=== PATIENT | male | born 1990 | race Hispanic/Latino ===

== ENCOUNTER 2025-06-23 11:24 | Emergency (ER) | payer OTHER ==
[2025-06-23] MEDS ORDERED: KETOROLAC 30 MG/ML INJ ONE (11:57)
[2025-06-23] MEDS ORDERED: NA CHLORIDE 0.9% 1,000 ML ONE (11:57)
[2025-06-23 11:59] LABS: Absolute Lymphocytes (CBC) 0.9 K/uL (0.7-4.9); Hematocrit 51.5 % (39.6-49.0); Hemoglobin 18.6 g/dL (13.6-17.9); MCH 33.7 pg (27.0-35.0); MCHC 36.2 g/dL (32.0-36.0); MCV 93.0 fL (80-100); MPV 8.1 fL (7.6-11.3); Nucleated RBC Absolute Count 0.0 (0-0); Nucleated Red Blood Cells % 0.1 % (0-0); RBC Red Blood Cell Count 5.54 M/uL (4.33-5.43); White Blood Count 6.60 thou/uL (4.3-10.9)
[2025-06-23 12:18] LABS: PT Prothrombin Time 10.9 SECONDS (10-13.0); Protime INR 0.96
[2025-06-23 12:27] LABS: D-Dimer < 0.215 FEUug/mL (0-0.500)
[2025-06-23 12:29] LABS: ALT/SGPT 170.0 U/L (16-61); AST/SGOT 122.0 U/L (15-37); Albumin 4.9 g/dL (3.4-5.0); Albumin/Globulin Ratio 1.2 (1.1-1.8); Alkaline Phosphatase 106.0 U/L (45-117); Anion Gap 14.5 mEq/L (5.0-15.0); BUN Blood Urea Nitrogen 8.0 mg/dL (7-18); Bilirubin Indirect, Calculated 1.0 mg/dL (0.2-0.8); Globulin 4.0 g/dL (2.3-3.5); Glucose Level 133.0 mg/dL (74-106); Magnesium 2.3 mg/dL (1.6-2.4); NT PRO-BNP 10.0 pg/mL (<125); Potassium 3.5 mEq/L (3.5-5.1); Troponin High Sensitivity 17.4 pg/mL (<58.9)
--- NOTE | 2025-06-23 12:43 | RAD REPORT ---
EXAM: Chest Single View HISTORY: 34 years Male CHEST PAIN COMPARISON: No prior exams FINDINGS: LUNGS/PLEURA: The lungs are clear. No pleural effusions or pneumothorax. No pulmonary edema. CARDIAC/MEDIASTINUM: The cardiac silhouette is within normal limits. UPPER ABDOMEN: No significant abnormality. BONES: No acute abnormality. LINES/TUBES/OTHER: N/A IMPRESSION: No evidence of acute cardiopulmonary disease.
--- NOTE | 2025-06-23 13:14 | EDPHYS ---
Physician Documentation [facility] Name: Radhames Funes Age: 34 yrs Sex: Male : 1990 Arrival Date: 06/23/2025 Time: 11:24 Bed 15 Private MD: ED Physician Mandy Mantilla HPI: 06/23 11:58 This 34 yrs old Male presents to ER via Ambulatory with complaints of Chest Pain, Arm sp3 Pain, High Blood Pressure. 12:00 34-year-old male with no medical history presents to the ED with chief complaint chest sp3 pain started at work this morning. Patient also states he has been very anxious as of late. Also decreased p.o. intake and he is having some body cramps. He does work outside. He denies any other symptoms including headache, neck pain, fever, shortness of breath, abdominal pain, nausea, vomiting, diarrhea, syncope, near syncope, bleeding, rash, known sick contacts, prolonged immobilization, prior DVT or PE, or any other signs or symptoms on ROS at this time.. Historical: - Allergies: 11:43 No Known Allergies; ap3 - Home Meds: 11:43 None [Active]; ap3 - PMHx: 11:43 None; ap3 - Immunization history:: Adult Immunizations up to date. - Infectious Disease History:: Denies. - Social history:: Smoking status: Patient reports the use of cigarette tobacco products, smokes one-half pack cigarettes per day. ROS: 12:01 Constitutional: Negative for fever, chills, and weight loss, Eyes: Negative for injury, sp3 pain, redness, and discharge, ENT: Negative for injury, pain, and discharge, Neck: Negative for injury, pain, and swelling, Respiratory: Negative for shortness of breath, cough, wheezing, and pleuritic chest pain, Back: Negative for injury and pain, MS/Extremity: Negative for injury and deformity, Skin: Negative for injury, rash, and discoloration, Neuro: Negative for headache, weakness, numbness, tingling, and seizure, Psych: Negative for depression, anxiety, suicide ideation, homicidal ideation, and hallucinations, Allergy/Immunology: Negative for hives, rash, and allergies, Endocrine: Negative for neck swelling, polydipsia, polyuria, polyphagia, and marked weight changes, Hematologic/Lymphatic: Negative for swollen nodes, abnormal bleeding, and unusual bruising, 12:01 All other systems are negative, Exam: 12:01 Constitutional: This is a well developed, well nourished patient who is awake, alert, sp3 and in no acute distress. Head/Face: Normocephalic, atraumatic. Eyes: Pupils equal round and reactive to light, extra-ocular motions intact. Lids and lashes normal. Conjunctiva and sclera are non-icteric and not injected. Cornea within normal limits. Periorbital areas with no swelling, redness, or edema. ENT: Nares patent. No nasal discharge, no septal abnormalities noted. External auditory canals are clear. Oropharynx with no redness, swelling, or masses, exudates, or evidence of obstruction, uvula midline. Mucous membranes moist. Neck: Trachea midline, no thyromegaly or masses palpated, and no cervical lymphadenopathy. Supple, full range of motion without nuchal rigidity, or vertebral point tenderness. No Meningismus. Chest/axilla: Normal chest wall appearance and motion. Nontender with no deformity. No lesions are appreciated. Cardiovascular: Regular rate and rhythm with a normal S1 and S2. No gallops, murmurs, or rubs. Normal PMI, no JVD. No pulse deficits. Respiratory: Lungs have equal breath sounds bilaterally, clear to auscultation and percussion. No rales, rhonchi or wheezes noted. No increased work of breathing, no retractions or nasal flaring. Abdomen/GI: Soft, non-tender, with normal bowel sounds. No distension or tympany. No guarding or rebound. No evidence of tenderness throughout. Back: No spinal tenderness. No costovertebral tenderness. Full range of motion. Skin: Warm, dry with normal turgor. Normal color with no rashes, no lesions, and no evidence of cellulitis. 12:01 ECG was reviewed by the Attending Physician. EKG demonstrates normal sinus rhythm at 87 bpm with normal intervals, normal QRS, normal axis and nonspecific diffuse ST/T changes with mild early J-point elevation noted and no ischemic changes. Vital Signs: 11:40 BP 160 / 119; Pulse 82; Resp 18; Temp 97.8(O); Pulse Ox 100% on R/A; Weight 70 kg; Pain ap3 6/10; 11:55 BP 156 / 104; Pulse 86; Resp 20 S; Pulse Ox 98% on R/A; kc6 12:24 BP 162 / 104; Pulse 81; Resp 18 S; Pulse Ox 100% on R/A; kc6 11:40 Pain Scale: Adult ap3 MDM: 11:38 Medical Screening Exam initiated sp3 12:02 Data reviewed: vital signs, nurses notes, lab test result(s), EKG, radiologic studies. sp3 ED course: 34-year-old male with chest pain after working outside and mild anxiety. Differential diagnosis includes dehydration, rhabdomyolysis, anxiety, electrolyte abnormality, and to a lesser degree ACS or other cardiopulmonary pathology. I am not highly suspicious of sepsis, shock, PE, TAD or any other critical process. Workup will include chest x-ray, EKG and general labs with treatment IV fluids and ketorolac IV. Disposition pending workup and patient course.. 13:12 ED course: Patient with elevated LFTs and clinically dehydrated. I counseled patient on sp3 both in Fijian. We will safely discharge him home at this time.. 06/23 11:42 Order name: Basic Metabolic Panel; Complete Time: 12:49 sp3 06/23 11:42 Order name: CBC with Diff sp3 06/23 11:42 Order name: D-Dimer; Complete Time: 12:49 sp3 06/23 11:42 Order name: LFT's; Complete Time: 12:49 sp3 06/23 11:42 Order name: Magnesium; Complete Time: 12:49 sp3 06/23 11:42 Order name: NT PRO-BNP; Complete Time: 12:49 sp3 06/23 11:42 Order name: PT-INR; Complete Time: 12:49 sp3 06/23 11:42 Order name: Troponin HS; Complete Time: 12:49 sp3 06/23 12:00 Order name: CK; Complete Time: 13:08 sp3 06/23 11:42 Order name: XRAY Chest (1 view); Complete Time: 12:49 sp3 06/23 11:42 Order name: Cardiac monitoring; Complete Time: 11:55 sp3 06/23 11:42 Order name: EKG - Nurse/Tech; Complete Time: 11:55 sp3 06/23 11:42 Order name: IV Saline Lock; Complete Time: 11:55 sp3 06/23 11:42 Order name: Labs collected and sent; Complete Time: : sp3 06/23 11:42 Order name: O2 Per Protocol; Complete Time: sp3 06/23 11:42 Order name: O2 Sat Monitoring; Complete Time: sp3 Administered Medications: 12:11 Drug: NS 0.9% IV 1000 ml IV at 1 bolus Per protocol; to be given as a bolus over 60 kc6 minutes Route: IV; Rate: 1 bolus; Site: right antecubital; 12:11 Drug: Ketorolac IVP 15 mg IVP once Route: IVP; Site: right antecubital; kc6 Disposition Summary: 06/23/25 13:14 Discharge Ordered Notes: Location: Home sp3 Condition: Stable sp3 Diagnosis - Dehydration, hyponatremia, elevated liver enzymes, heat exhaustion sp3 Followup: sp3 - With: Private Physician - When: Upon discharge from the Emergency Department - Reason: Continuance of care Discharge Instructions: - Discharge Summary Sheet sp3 - Heat Exhaustion sp3 - Alcoholic Liver Disease sp3 Forms: - Work release form bd - Medication Reconciliation Form sp3 - Antibiotic Education sp3 - Prescription Opioid Use sp3 - Patient Portal Instructions sp3 - Leadership Thank You Letter sp3 Signatures: Dispatcher [employer] Fidelina Garza RN RN ap3 Mandy Mantilla MD MD sp3 Genet Bloom RN RN kc6 Corrections: (The following items were deleted from the chart) 11:42 11:42 BASIC METABOLIC PANEL+C.LAB.BRZ ordered. EDMS EDMS 11:42 11:42 CBC+H.LAB.BRZ ordered. EDMS EDMS 11:42 11:42 D-DIMER+COAG.LAB.BRZ ordered. EDMS EDMS 11:42 11:42 HEPATIC FUNCTION+C.LAB.BRZ ordered. EDMS EDMS 11:42 11:42 MAGNESIUM+C.LAB.BRZ ordered. EDMS EDMS 11:42 11:42 PROBNP+C.LAB.BRZ ordered. EDMS EDMS 11:42 11:42 PROTIME (+INR)+COAG.LAB.BRZ ordered. EDMS EDMS 11:42 11:42 Troponin High Sensitivity+C.LAB.BRZ ordered. EDMS EDMS 11:42 11:42 Chest Single View+RAD.RAD.BRZ ordered. EDMS EDMS 12:00 12:00 CREATINE PHOSPHOKINASE+C.LAB.BRZ ordered. EDMS EDMS
--- NOTE | 2025-06-23 13:14 | ER ---
Nurse's Notes [facility] Name: Radhames Funes Age: 34 yrs Sex: Male : 1990 Arrival Date: 06/23/2025 Time: 11:24 Bed 15 Private MD: Diagnosis: Dehydration, hyponatremia, elevated liver enzymes, heat exhaustion Presentation: 06/23 11:40 Chief complaint: Patient states: ([id number])he had brief chest pain this morning at work ap3 at approx 1030 this morning, and is now reporting the chest pain as gone but he is now having pain in is left arm. patient also reports shortness of breath, nausea and that his pain is currently a 6/10 on the pain scale. Coronavirus screen: At this time, the client does not indicate any symptoms associated with coronavirus-19. Ebola Screen: No symptoms or risks identified at this time. Initial Sepsis Screen: Does the patient meet any 2 criteria? No. Patient's initial sepsis screen is negative. Does the patient have a suspected source of infection? No. Patient's initial sepsis screen is negative. Risk Assessment: Do you want to hurt yourself or someone else? Patient reports no desire to harm self or others. Onset of symptoms was June 23, 2025 at 10:30. 11:40 Method Of Arrival: Ambulatory ap3 11:40 Acuity: OLIVERIO 2 ap3 Triage Assessment: 11:44 General: Appears uncomfortable, Behavior is calm, cooperative, appropriate for age. ap3 Pain: Complains of pain in chest and left arm Pain currently is 6 out of 10 on a pain scale. 11:44 Neuro: Level of Consciousness is awake, alert, obeys commands, Oriented to person, ap3 place, time, situation, Appropriate for age Gait is steady, Speech is normal. Cardiovascular: Reports chest pain, shortness of breath, Chest pain began 1 hour prior to arrival. Respiratory: Reports shortness of breath Airway is patent Respiratory effort is even, unlabored, Respiratory pattern is regular, symmetrical. GI: Reports nausea. Historical: - Allergies: 11:43 No Known Allergies; ap3 - Home Meds: 11:43 None [Active]; ap3 - PMHx: 11:43 None; ap3 - Immunization history:: Adult Immunizations up to date. - Infectious Disease History:: Denies. - Social history:: Smoking status: Patient reports the use of cigarette tobacco products, smokes one-half pack cigarettes per day. Screenin:40 [facility] ED Fall Risk Assessment (Adult) History of falling in the last 3 months, kc6 including since admission No falls in past 3 months (0 pts) Confusion or Disorientation No (0 pts) Intoxicated or Sedated No (0 pts) Impaired Gait No (0 pts) Mobility Assist Device Used No (0 pt) Altered Elimination No (0 pt) Score/Fall Risk Level 0 - 2 = Low Risk Oriented to surroundings. 11:45 Abuse screen: Denies threats or abuse. Nutritional screening: No deficits noted. ap3 Tuberculosis screening: No symptoms or risk factors identified. Assessment: 11:40 Neuro: Level of Consciousness is awake, alert, obeys commands, Oriented to person, kc6 place, time, situation, Appropriate for age. Cardiovascular: Reports chest pain, Heart tones S1 S2 present Capillary refill < 3 seconds Rhythm is regular. Respiratory: Airway is patent Trachea midline Respiratory effort is even, unlabored, Respiratory pattern is regular, symmetrical. GI: Reports nausea, Patient currently denies abdominal pain, diarrhea, vomiting. : No signs and/or symptoms were reported regarding the genitourinary system. EENT: No signs and/or symptoms were reported regarding the EENT system. Derm: Skin is intact, is healthy with good turgor, Skin is diaphoretic, Skin is red, Skin temperature is warm. Musculoskeletal: No signs and/or symptoms reported regarding the musculoskeletal system. Circulation, motion, and sensation intact. Range of motion: intact in all extremities. 11:40 General: Appears in no apparent distress. uncomfortable, well groomed, well developed, kc6 Behavior is cooperative, appropriate for age, anxious. Pain: Complains of pain in back, chest and left arm Pain radiates to back and left arm Pain currently is 7 out of 10 on a pain scale. Quality of pain is described as sharp, Pain began 2 hours ago. Is continuous, Noted to be grimacing. 12:26 Reassessment: Patient appears in no apparent distress at this time. No changes from kc6 previously documented assessment. Patient and/or family updated on plan of care and expected duration. Pain level reassessed. Patient is alert, oriented x 3, equal unlabored respirations, skin warm/dry/pink. 13:34 Reassessment: Patient appears in no apparent distress at this time. No changes from kc6 previously documented assessment. Patient and/or family updated on plan of care and expected duration. Pain level reassessed. Patient is alert, oriented x 3, equal unlabored respirations, skin warm/dry/pink. Vital Signs: 11:40 BP 160 / 119; Pulse 82; Resp 18; Temp 97.8(O); Pulse Ox 100% on R/A; Weight 70 kg; Pain ap3 6/10; 11:55 BP 156 / 104; Pulse 86; Resp 20 S; Pulse Ox 98% on R/A; kc6 12:24 BP 162 / 104; Pulse 81; Resp 18 S; Pulse Ox 100% on R/A; kc6 11:40 Pain Scale: Adult ap3 ED Course: 11:04 Arm band placed on. kc6 11:25 Patient arrived in ED. im 11:26 Mandy Mantilla MD is Attending Physician. sp3 11:29 Genet Bloom, KENDRICK is Primary Nurse. kc6 11:43 Triage completed. ap3 11:45 Patient has correct armband on for positive identification. Bed in low position. Call ap3 light in reach. Side rails up X 1. Client placed on continuous cardiac and pulse oximetry monitoring. NIBP monitoring applied. monitoring manager on. Pulse ox on. NIBP on. 11:45 Patient maintains SpO2 saturation greater than 95% on room air. ap3 11:55 EKG completed in triage. Results shown to MD. kc6 11:55 Inserted saline lock: 20 gauge in right antecubital area, using aseptic technique. kc6 Blood collected. Flushed with 10 mL NS. 12:22 XRAY Chest (1 view) In Process Unspecified. EDMS 13:34 No provider procedures requiring assistance completed. IV discontinued, intact, kc6 bleeding controlled, No redness/swelling at site. Pressure dressing applied. Administered Medications: 12:11 Drug: NS 0.9% IV 1000 ml IV at 1 bolus Per protocol; to be given as a bolus over 60 kc6 minutes Route: IV; Rate: 1 bolus; Site: right antecubital; 12:11 Drug: Ketorolac IVP 15 mg IVP once Route: IVP; Site: right antecubital; kc6 Medication: 13:34 VIS not applicable for this client. kc6 Outcome: 13:14 Discharge ordered by . sp3 13:34 Discharged to home ambulatory, with friend, kc6 13:34 Condition: improved 13:34 Discharge instructions given to patient, Instructed on discharge instructions, follow up and referral plans. Demonstrated understanding of instructions, follow-up care, 13:34 Patient left the ED. kc6 Signatures: Dispatcher [employer] EDMS Fidelina Bryant RN RN ap3 Mandy Mantilla MD MD sp3 Genet Bloom RN RN kc6 Clementina Johnson Corrections: (The following items were deleted from the chart) 11:45 11:40 Chief complaint: Patient states: he had brief chest pain this morning at work at [employer] approx 1030 this morning, and is now reporting the chest pain as gone but he is now having pain in is left arm. patient also reports shortness of breath, nausea and that his pain is currently a 6/10 on the pain scale. [employer] 12:26 11:04 [facility] ED Fall Risk Assessment (Adult) History of falling in the last 3 months, kc6 including since admission No falls in past 3 months (0 pts) Confusion or Disorientation No (0 pts) Intoxicated or Sedated No (0 pts) Impaired Gait No (0 pts) Mobility Assist Device Used No (0 pt) Altered Elimination No (0 pt) Score/Fall Risk Level 0 - 2 = Low Risk Oriented to surroundings, 6 12:26 11:04 General: Appears in no apparent distress. uncomfortable, well groomed, well kc6 developed, Behavior is cooperative, appropriate for age, anxious, [facility] 12:26 11:04 Pain: Complains of pain in back, chest and left arm Pain radiates to back and kc6 left arm Pain currently is 7 out of 10 on a pain scale. Quality of pain is described as sharp, Pain began 2 hours ago. Is continuous, Noted to be grimacing, 6 12:26 11:04 Neuro: Level of Consciousness is awake, alert, obeys commands, Oriented to kc6 person, place, time, situation, Appropriate for age [facility] 12:26 11:04 Cardiovascular: Reports chest pain, Heart tones S1 S2 present Capillary refill < kc6 3 seconds Rhythm is regular [facility] 12:26 11:04 Respiratory: Airway is patent Trachea midline Respiratory effort is even, kc6 unlabored, Respiratory pattern is regular, symmetrical, kc6 : 11:04 GI: Reports nausea, Patient currently denies abdominal pain, diarrhea, vomiting, kc6 kc6 : 11:04 : No signs and/or symptoms were reported regarding the genitourinary system. [id number] : 11:04 EENT: No signs and/or symptoms were reported regarding the EENT system. kc6 kc6 : 11:04 Derm: Skin is intact, is healthy with good turgor, Skin is diaphoretic, Skin is kc6 red, Skin temperature is warm kc6 : 11:04 Musculoskeletal: No signs and/or symptoms reported regarding the musculoskeletal kc6 system. Circulation, motion, and sensation intact. Range of motion: intact in all extremities, kc6 : 12:04 Reassessment: Patient appears in no apparent distress at this time. No changes kc6 from previously documented assessment. Patient and/or family updated on plan of care and expected duration. Pain level reassessed. Patient is alert, oriented x 3, equal unlabored respirations, skin warm/dry/pink. kc6
[2025-06-23 13:38] VITALS: TEMP 97.8
[2025-06-23 13:41] VITALS: BP 162/104; O2SAT 100
[2025-06-23 14:37] LABS: Blood Morphology Comment NOT SEEN (NOT SEEN); White Blood Cell Scan OK (OK)
== END 2025-06-23 13:34 | disposition home or self-care (01) ==
LOC: ER 11:24
DX: E86.0 Dehydration (principal); T67.5XXA Heat exhaustion, unspecified, initial encounter; E87.1 Hypo-osmolality and hyponatremia; R74.01 Elevation of levels of liver transaminase levels; F17.210 Nicotine dependence, cigarettes, uncomplicated
CPT/HCPCS: 36415; 71045; 80048; 80076; 82550; 83735; 83880; 84484; 85025; 85379; 85610; 93005; 96374; 99285; J7030